=== PATIENT | female | born 1950 | race Caucasian/White ===

== ENCOUNTER 2017-11-22 07:26 | Emergency (ER) | payer MEDICARE ==
[~2017-11-22] VITALS: Ht 165.1 cm; Wt 53.5 kg
[~2017-11-22 07:26] MED LIST: (None)20 M1 GT; ALBU3IS INH; ALBU90OI61 INH; AZIT250 PO; BENZ100A PO; Bactrim Ds Tab1 EACH PO; Bactroban22 GM TOP; CEPH500 PO; CIPR500 PO; CODGUAEL PO; FOLI1 PO; LEVFLO500 PO; LISHYD2025 PO; LOSA25 PO; NICO21TP TD; PRED10 PO; PRED20 PO; Prednisone20 MG PO; RXPROM25 PO; RXTRAM50 PO; THIA100 PO; TRAM50 PO; TRAZ50 PO; Zithromax Tri-500 MG PO
[2017-11-22] MEDS ORDERED: Ventolin/Prove6.7 GM INH (07:41)
[2017-11-22 08:19] LABS: BASOPHILS PERCENT AUTO 1 % (0-2); EOSINOPHILS ABSOLUTE AUTO 0.57 K/mm3 (0.00-0.68); EOSINOPHILS PERCENT AUTO 6 % (0-6); Hematocrit 38.3 % (33.0-51.0); Hemoglobin 12.7 g/dL (11.5-16.0); IMMATURE GRAN ABSOLUTE AUTO 0.03 K/mm3 (0.00-0.10); IMMATURE GRAN PERCENT AUTO 0 % (0-1); LYMPHOCYTES ABSOLUTE AUTO 2.05 K/mm3 (0.84-5.20); LYMPHOCYTES PERCENT AUTO 21 % (21-46); MONOCYTES ABSOLUTE AUTO 0.66 K/mm3 (0.16-1.47); MONOCYTES PERCENT AUTO 7 % (4-13); Mean Corpuscular HGB 33.3 pg (26.0-34.0); Mean Corpuscular HGB Conc 33.2 g/dL (31.5-36.5); Mean Corpuscular Volume 101 fL (80-100); Mean Platelet Volume 8.8 fL (9.1-12.4); NEUTROPHILS ABSOLUTE AUTO 6.39 K/mm3 (1.96-9.15); NEUTROPHILS PERCENT AUTO 65 % (41-73); Platelet Count 205 K/mm3 (150-400); RDW Coefficient Variation 13.2 % (11.7-14.2); RDW Standard Deviation 49.1 fL (35.1-46.3); Red Blood Cell Count 3.81 M/mm3 (3.80-5.20)
[2017-11-22 08:35] LABS: Alanine Aminotransfer (ALT/SGP 55 U/L (12-78); Albumin, Blood 3.6 g/dL (3.4-5.0); Albumin/Globulin Ratio 1.1 (0.8-1.8); Alk Phos 67 U/L (50-136); Anion Gap 10 mmol/L (6-16); Aspartate Aminotrans (AST/SGOT 63 U/L (12-37); Bilirubin, Total 0.7 mg/dL (0.1-1.0); Blood Urea Nitrogen 7 mg/dL (8-24); CO2, Blood 24 mmol/L (21-32); Calcium, Blood 8.6 mg/dL (8.5-10.1); Chloride, Blood 106 mmol/L (98-108); Creatinine, Blood 0.59 mg/dL (0.40-1.00); Globulin, Blood 3.3 g/dL (2.2-4.0); Glomerular Filtration Rate >60 (60-); Glucose, Blood 85 mg/dL (70-99); Potassium, Blood 3.6 mmol/L (3.5-5.5); Sodium, Blood 140 mmol/L (136-145); Total Protein, Blood 6.9 g/dL (6.4-8.2); Troponin I 0.017 ng/mL (0.000-0.040)
[2017-11-22] MEDS ORDERED: Norco 5-325 Ta1 EACH PO (08:56)
[2017-11-22] MEDS ORDERED: Prednisone20 MG PO (08:56)
[2017-11-22] MEDS ORDERED: Zithromax250 MG PO (08:56)
== END 2017-11-22 09:25 | disposition home or self-care (01) ==
LOC: ER 07:26
PROVIDERS: Emergency Medicine
DX: J44.1 Chronic obstructive pulmonary disease with (acute) exacerbation (principal); I10 Essential (primary) hypertension; Z88.6 Allergy status to analgesic agent; Z88.5 Allergy status to narcotic agent; Z79.899 Other long term (current) drug therapy; Z79.51 Long term (current) use of inhaled steroids
CPT/HCPCS: 71046; 80053; 81000; 84484; 85025; 93005; 93010; 94640; 96361; 96374; 99285-25; J2930; J7030

== ENCOUNTER 2018-05-07 13:41 | Inpatient (IN) | payer MEDICARE, OTHER ==
[~2018-05-07] VITALS: Ht 154.9 cm; Wt 54.6 kg
[~2018-05-07 13:41] MED LIST changes: +ANORO ELLIPTA1 EACH INH; +GUAIFENESIN1200 MG PO; +Norco 5-325 Ta1 EACH PO; +Ventolin/Prove6.7 GM INH; +Zithromax250 MG PO
[2018-05-07 14:01] LABS: PCO2 Arterial 74.9 mmHg (35-45); pH Blood Arterial 7.17 (7.35-7.45)
[2018-05-07 14:08] LABS: BASOPHILS ABSOLUTE AUTO 0.06 K/mm3 (0.00-0.23); BASOPHILS PERCENT AUTO 1 % (0-2); EOSINOPHILS ABSOLUTE AUTO 0.04 K/mm3 (0.00-0.68); EOSINOPHILS PERCENT AUTO 0 % (0-6); Hematocrit 42.2 % (33.0-51.0); Hemoglobin 13.5 g/dL (11.5-16.0); IMMATURE GRAN ABSOLUTE AUTO 0.03 K/mm3 (0.00-0.10); IMMATURE GRAN PERCENT AUTO 0 % (0-1); LYMPHOCYTES ABSOLUTE AUTO 1.75 K/mm3 (0.84-5.20); LYMPHOCYTES PERCENT AUTO 19 % (21-46); MONOCYTES ABSOLUTE AUTO 0.88 K/mm3 (0.16-1.47); MONOCYTES PERCENT AUTO 9 % (4-13); Mean Corpuscular HGB 31.8 pg (26.0-34.0); Mean Corpuscular Volume 99 fL (80-100); Mean Platelet Volume 8.8 fL (9.1-12.4); NEUTROPHILS ABSOLUTE AUTO 6.67 K/mm3 (1.96-9.15); NEUTROPHILS PERCENT AUTO 71 % (41-73); Platelet Count 263 K/mm3 (150-400); RDW Coefficient Variation 14.2 % (11.7-14.2); RDW Standard Deviation 52.2 fL (35.1-46.3); Red Blood Cell Count 4.25 M/mm3 (3.80-5.20); White Blood Cell Count 9.43 K/mm3 (4.00-11.30)
[2018-05-07 14:34] LABS: Alanine Aminotransfer (ALT/SGP 21 U/L (12-78); Albumin, Blood 4.1 g/dL (3.4-5.0); Albumin/Globulin Ratio 1.1 (0.8-1.8); Alk Phos 76 U/L (50-136); Anion Gap 8 mmol/L (6-16); Aspartate Aminotrans (AST/SGOT 25 U/L (12-37); Bilirubin, Total 0.6 mg/dL (0.1-1.0); Blood Urea Nitrogen 8 mg/dL (8-24); Bun/Creatinine Ratio 15.8 (12.0-20.0); CO2, Blood 26 mmol/L (21-32); Calcium, Blood 8.9 mg/dL (8.5-10.1); Chloride, Blood 105 mmol/L (98-108); Creatinine, Blood 0.51 mg/dL (0.40-1.00); Globulin, Blood 3.6 g/dL (2.2-4.0); Glomerular Filtration Rate >60 (60-); Glucose, Blood 188 mg/dL (70-99); Potassium, Blood 4.1 mmol/L (3.5-5.5); Sodium, Blood 139 mmol/L (136-145); Total Protein, Blood 7.7 g/dL (6.4-8.2)
[2018-05-07] MEDS ORDERED: ANORO ELLIPTA1 EACH INH (15:57)
[2018-05-07] MEDS ORDERED: ALBU90OI INH (15:58)
[2018-05-07] MEDS ORDERED: FLUO10 PO (15:58)
[2018-05-07] MEDS ORDERED: LOSA50 PO (15:59)
--- NOTE | 2018-05-07 17:26 | NUR ---
ADMIT: PT ADMITTED TO ICU 14 FROM ED. PT AWAKE, ON THE BIPAP 16/8 FIO2 70%. PT'S BREATHING APPEARS LABORED, STILL TOO SHORT OF BREATH TO SAY MORE THAN 1-2 WORDS AT A TIME. LUNGS ARE DIM, SCATTERED EXP WHEEZES. DR. ROBERTSON INFORMED OF CONSULT AND RT NOTIFIED OF ABG AT 1900. NO FAMILY CURRENTLY AT THE BEDSIDE.
[2018-05-07 19:13] LABS: PCO2 Arterial 55.5 mmHg (35-45); PO2 Arterial 81.1 mmHg (80-100); pH Blood Arterial 7.27 (7.35-7.45)
--- NOTE | 2018-05-07 19:55 | NUR ---
CARE ASSUMED CARE AND REPORT ASSUMED FROM NAOMI Paz RN. PT SITTING ON EDGE OF BED BUT IS A/O X 3. C/O GENERALIZED ACHES OVER ENTIRE BODY. [place], HR 110-120. BP ELEVATED PT IS ANXIOUS AT THIS TIME. ENCOURAGED HER BACK INTO BED. ABG RESULTS SHOW IMPROVEMENT WITH USE OF BIPAP. BIPAP CURRENTLY AT 18/6, FIO2 70%. LUNG SOUNDS DIMINISHED WITH INSPIRATORY AND EXPIRATORY WHEEZES. PT TOLERATED FEW SIPS OF WATER AND WAS ABLE TO SWALLOW PO ATIVAN. PRECEDEX GTT STARTED AT 0.2 MCG/KG. BANANA BAG INFUSING PER ORDER. AFEBRILE. WILL CONTINUE TO MONITOR.
[2018-05-07 20:39] LABS: Adenovirus Not Detected (NOT DETECT); Bordetella pertussis Not Detected (NOT DETECT); Chlamydophila pneumoniae Not Detected (NOT DETECT); Coronavirus 229E Not Detected (NOT DETECT); Coronavirus HKU1 Not Detected (NOT DETECT); Coronavirus NL63 Not Detected (NOT DETECT); Coronavirus OC43 Not Detected (NOT DETECT); Human Metapneumovirus Not Detected (NOT DETECT); Human Rhinovirus/Enterovirus Not Detected (NOT DETECT); Influenza A Not Detected (NOT DETECT); Influenza A/2009-H1 Not Detected (NOT DETECT); Influenza A/H1 Not Detected (NOT DETECT); Influenza A/H3 Detected (NOT DETECT); Influenza B Not Detected (NOT DETECT); Mycoplasma pneumoniae Not Detected (NOT DETECT); Parainfluenza Virus 1 Not Detected (NOT DETECT); Parainfluenza Virus 2 Not Detected (NOT DETECT); Parainfluenza Virus 3 Not Detected (NOT DETECT); Parainfluenza Virus 4 Not Detected (NOT DETECT); Respiratory Syncytial Virus Not Detected (NOT DETECT)
[2018-05-07 22:30] LABS: PCO2 Arterial 56.3 mmHg (35-45); PO2 Arterial 108 mmHg (80-100); pH Blood Arterial 7.26 (7.35-7.45)
--- NOTE | 2018-05-07 22:30 | NUR ---
CALL TO MD Villagran - MD ROBERTSON CALLED FOR UPDATE ON PT RESPIRATORY STATUS. SPO2 98% ON BIPAP /, FIO2 70% BUT PTS RESPIRATROY EFFORT HAS INCREASED SINCE START OF SHIFT. SHE NOW IS HAVING INTERCOSTAL RETRACTIONS AND IS AWAKENING AND ATTEMPTING TO GRAB AT BIPAP STATING SHE CANNOT BREATHE. HER WHEEZES HAVE GOTTEN WORSE, SHE IS NOW HAVING INSPIRATORY AND EXP WHEEZING THROUGHOUT ALL SUAREZ. T.O. TO REPEAT ABG AND INCREASE SEDATION. WILL NOTIFY MD ROBERTSON OF ABG RESULTS. PRECEDEX GTT INFUSING AT 0.5 MCG AND BILAT WRIST RESTRAINTS APPLIED.
--- NOTE | 2018-05-07 23:37 | NUR ---
REASSESSMENT NO CHANGE SINCE PRIOR ASSESSMENT. REMAINS ON BIPAP 07/10, FIO2 70% WITH SPO2 99%. PT CALM AND SLEEPING. PRECEDEX GTT AT 0.5 MCG/KG/HR. MIV NS DECREASED TO 50 ML/HR PER MD ORDER. CURRENTLY IN NSR, HR 70S WITH STABLE BP. AFEBRILE 97.4. REMAINS IN BUE WRIST RESTRAINTS IN ORDER TO KEEP BIPAP IN PLACE. PT PLACED IN DROPLET ISOLATION FOR INFLUENZA. WILL CONTINUE TO MONITOR.
[2018-05-08 03:50] LABS: Albumin, Blood 3.3 g/dL (3.4-5.0); Anion Gap 9 mmol/L (6-16); Blood Urea Nitrogen 10 mg/dL (8-24); CO2, Blood 24 mmol/L (21-32); Calcium, Blood 8.2 mg/dL (8.5-10.1); Chloride, Blood 105 mmol/L (98-108); Creatinine, Blood 0.43 mg/dL (0.40-1.00); Glomerular Filtration Rate >60 (60-); Glucose, Blood 268 mg/dL (70-99); Magnesium, Blood 2.2 mg/dL (1.6-2.4); Phosphorus, Blood 3.3 mg/dL (2.5-4.9); Potassium, Blood 4.4 mmol/L (3.5-5.5); Sodium, Blood 138 mmol/L (136-145)
--- NOTE | 2018-05-08 03:56 | NUR ---
REASSESSMENT PT SLEEPING AND MORE RELAXED SINCE PRIOR EXAM. RESP RATE AND WORK OF BREATHING HAS IMPROVED. PT REMAINS ON VENT 16/8, FIO2 55%. LUNG SOUNDS REMAIN DIMINISHED AND WHEEZY. PRECEDEX GTT INFUSING AT 0.5 MCG/KG/HR. AFEBRILE 97.6. BP STABLE AND PT IN NSR, HR 70S. REMAINS IN RESTRAINTS. SCDS APPLIED. MIV NS INFUSING AT 50 ML/HR. WILL CONTINUE TO MONITOR.
--- NOTE | 2018-05-08 05:51 | NUR ---
SHIFT SUMMARY SEE NOTES FROM BEGINNING OF SHIFT AND CALL TO MD. PT HAS SINCE THEN BEEN CALM AND LIGHTLY SEDATED WITH PRECEDEX GTT AT 0.5 MCG/KG/HR. BUE RESTRAINED PT CONTINUES TO ATTEMPT TO PULL ON BIPAP MASK AND LINES. CATHETER OUTPUT WAS 650 ML. NS MIV DECREASED TO 50 ML/HR. REMAINS ON BIPAP 18/6, FIO2 DECREASED TO 55%. VSS AND BP WNL WHEN PT RELAXED. AFEBRILE. PT IN DROPLET ISOLATION. WILL GIVE BEDSIDE, HANDOFF REPORT TO DAY RN.
--- NOTE | 2018-05-08 08:52 | NUR ---
START OF SHIFT NOTE: PATIENT IS AWAKE AND ON BIPAP MACHINE, SLIGHTLY DRWOSY D/T PRECEDEX INFUSING AT 0.5, TOLERATING BIPAP WELL, ABLE TO ANSWER SOME QUESTIONS, C/O SORE THROAT, DENIES CHEST PAIN/DISCOMFORT, REPORTS NO OTHER PAIN, PATIENT SITTING UP AT 90 DEGREE ANGLE, HELPS WITH BREATHING, LUNG SOUNDS ARE TIGHT AND WHEEZY THROUGHOUT, CALL LIGHT IN REACH, WILL CONTINUE TO MONITOR.
[2018-05-08 11:15] LABS: PO2 Arterial 97.1 mmHg (80-100); pH Blood Arterial 7.35 (7.35-7.45)
[2018-05-08 14:35] LABS: BASOPHILS PERCENT AUTO 0 % (0-2); EOSINOPHILS PERCENT AUTO 0 % (0-6); Hematocrit 35.4 % (33.0-51.0); Hemoglobin 11.5 g/dL (11.5-16.0); IMMATURE GRAN ABSOLUTE AUTO 0.06 K/mm3 (0.00-0.10); IMMATURE GRAN PERCENT AUTO 1 % (0-1); LYMPHOCYTES ABSOLUTE AUTO 0.46 K/mm3 (0.84-5.20); LYMPHOCYTES PERCENT AUTO 4 % (21-46); MONOCYTES ABSOLUTE AUTO 0.27 K/mm3 (0.16-1.47); MONOCYTES PERCENT AUTO 2 % (4-13); Mean Corpuscular HGB 32.3 pg (26.0-34.0); Mean Corpuscular HGB Conc 32.5 g/dL (31.5-36.5); Mean Corpuscular Volume 99 fL (80-100); Mean Platelet Volume 9.1 fL (9.1-12.4); NEUTROPHILS ABSOLUTE AUTO 10.79 K/mm3 (1.96-9.15); NEUTROPHILS PERCENT AUTO 93 % (41-73); Platelet Count 213 K/mm3 (150-400); RDW Coefficient Variation 13.9 % (11.7-14.2); RDW Standard Deviation 51.2 fL (35.1-46.3); Red Blood Cell Count 3.56 M/mm3 (3.80-5.20); White Blood Cell Count 11.58 K/mm3 (4.00-11.30)
--- NOTE | 2018-05-08 15:37 | NUR ---
PATIENT REMAINS CALM AND COOPERATIVE, PATIENT CONTINUOUS TO BE ON BIPAP, MASK REMOVED AND ATTEMPTED TO GIVE PATIENT DAILY ORAL MEDICATIONS BUT PATIENT WAS UNABLE TO FOLLOW INSTRUCTIONS AND RAPIDLY DESATED TO 82 % ONCE MASK WAS REMOVED, MASK REPLACED, WILL TRY AGAIN LATER, PATIENT WAS REPOSITIONED AND BOOSTED UP IN BED, TOLERATED WELL, CALL LIGHT IN REACH, WILL CONTINUE TO MONITOR.
--- NOTE | 2018-05-08 17:55 | NUR ---
SHIFT SUMMARY NOTE: PATIENT CONTINUES TO BE ON BIPAP, SETTINGS 18/8 FiO2 45%, ABG'S WNL, PER DR. ROBERTSON KEEP HER ON BIPAP AT THIS TIME, O2 SATURATION IN UPPER 90'S, PATIENT IS AWAKE AND ALERT BUT SLIGHTLY CONFUSED AT TIMES, ABLE TO FOLLOW INSTRUCTIONS/COMMANDS, AND HELP WITH SIDE TO SIDE REPOSITIONING, UNABLE TO SWALLOW ANY PO MEDICATIONS, WAS NOT ABLE TO DRINK SIPS OF WATER FROM STRAW OR CUP, KEPT DOZING OFF, LS CLEAR, SR/SB, HYPOACTIVE BOWEL TONES PRESENT, BONILLA CATHETER IN PLACE, DRAINING FOOD AMOUNT OF URINE, PATIENT SAT UP MOST OF DAY AT 90 DEGREE ANGLE FOR COMFORT, RESTRAINTS NOT IN USE, ORDER WAS D/C'D, PATIENT DID NOT TRY TO PULL AT LINES AND TUBES, RECEIVING IV ANTIBIOTICS, GRANDDAUGHTER AT BEDSIDE, WAS UPDATED ON PATIENT'S PROGRESS AND CONDITION, PATIENT RECEIVED 2 MG ATIVAN TOWARDS END OF DAY SHIFT D/T INCREASING RESTLESSNESS AND AGITATION, CALL LIGHT IN REACH, WILL CONTINUE TO MONITOR AND GIVE REPORT TO ONCOMING STORAGE GARAGE MANAGER.
--- NOTE | 2018-05-08 19:30 | NUR ---
Candler of Care: Patient sleeping, easily roused via verbal stimuli. Oriented x4, calm and cooperative with staff. Precedex gtt decreased from 0.5mcg/kg/min to 0.3mcg/kg/min. BiPAP at 18/8/40% at start of shift. RT Ariela decreased settings to 12/5/30%, O2% remains 94-97%. Pt denies dyspnea/SOB, but instructed per Dr. John to keep patient on BiPAP mask throughout the NOC shift as long as tolerated. Denies pain or discomfort. Peripheral IV's x2 patent and intact. Nieves cath patent and intact, draining clear yellow urine. Received verbal order per Dr. John to increase IV fluids from 50ml/hr to 75ml/hr. Call light in reach. Will continue to monitor for pain, comfort, safety.
[2018-05-09 03:17] LABS: BASOPHILS ABSOLUTE AUTO 0.02 K/mm3 (0.00-0.23); BASOPHILS PERCENT AUTO 0 % (0-2); EOSINOPHILS ABSOLUTE AUTO 0.01 K/mm3 (0.00-0.68); EOSINOPHILS PERCENT AUTO 0 % (0-6); Hemoglobin 12.1 g/dL (11.5-16.0); IMMATURE GRAN PERCENT AUTO 1 % (0-1); LYMPHOCYTES ABSOLUTE AUTO 0.76 K/mm3 (0.84-5.20); LYMPHOCYTES PERCENT AUTO 4 % (21-46); MONOCYTES ABSOLUTE AUTO 0.41 K/mm3 (0.16-1.47); MONOCYTES PERCENT AUTO 2 % (4-13); Mean Corpuscular HGB 31.6 pg (26.0-34.0); Mean Platelet Volume 9.2 fL (9.1-12.4); NEUTROPHILS ABSOLUTE AUTO 15.83 K/mm3 (1.96-9.15); NEUTROPHILS PERCENT AUTO 92 % (41-73); Platelet Count 202 K/mm3 (150-400); RDW Coefficient Variation 14.2 % (11.7-14.2); RDW Standard Deviation 53.4 fL (35.1-46.3); Red Blood Cell Count 3.83 M/mm3 (3.80-5.20); White Blood Cell Count 17.13 K/mm3 (4.00-11.30)
[2018-05-09 03:19] LABS: Mean Corpuscular Volume 102 fL (80-100)
[2018-05-09 03:36] LABS: Alanine Aminotransfer (ALT/SGP 20 U/L (12-78); Albumin, Blood 3.1 g/dL (3.4-5.0); Albumin/Globulin Ratio 0.9 (0.8-1.8); Alk Phos 56 U/L (50-136); Anion Gap 9 mmol/L (6-16); Aspartate Aminotrans (AST/SGOT 28 U/L (12-37); Bilirubin, Total 0.2 mg/dL (0.1-1.0); Blood Urea Nitrogen 13 mg/dL (8-24); Bun/Creatinine Ratio 28.3 (12.0-20.0); CO2, Blood 22 mmol/L (21-32); Calcium, Blood 8.5 mg/dL (8.5-10.1); Chloride, Blood 111 mmol/L (98-108); Creatinine, Blood 0.46 mg/dL (0.40-1.00); Globulin, Blood 3.3 g/dL (2.2-4.0); Glomerular Filtration Rate >60 (60-); Glucose, Blood 167 mg/dL (70-99); Phosphorus, Blood 2.9 mg/dL (2.5-4.9); Potassium, Blood 4.2 mmol/L (3.5-5.5); Sodium, Blood 142 mmol/L (136-145); Total Protein, Blood 6.4 g/dL (6.4-8.2)
--- NOTE | 2018-05-09 05:54 | NUR ---
Shift Summary: Patient slept well throughout shift. Easily roused via verbal stimuli, remains oriented x4, calm and cooperative with staff. Precedex gtt turned off at approx 0000hr, and off for remainder of shift. On BiPAP 12//25-30% for majority of shift. Short (15-20min) break from BiPAP this morning, O2- 94% on 2L/NC. Patient states she was slowly having more difficulty breathing, although appeared calm and comfortable. Placed back on BiPAP mask for patient's comfort, tolerating without difficulty. Peripheral IV's x2 remain patent and intact. Nieves cath remains patent and intact, draining dark yellow clear urine. Dr. John made aware this morning that patient had 350ml urine output, no new orders received. Call light in reach, makes needs known. Will continue to monitor until report to day shift RN.
--- NOTE | 2018-05-09 07:30 | NUR ---
BEDSIDE REPORT DONE AND INTRODUCED SELF TO PT. CALL LIGHT WITHIN REACH OF PT. NOW ASSUMING CARE OF THIS PT.
--- NOTE | 2018-05-09 08:03 | NUR ---
DR ROY IN TO ASSESS VISIT: PT TO CHANGE TO PCU STATUS AND WILL INCREASED DIET TOLERATED.
--- NOTE | 2018-05-09 10:15 | NUR ---
REPORTED OFF TO JU CORONADO WHOM WILL BE ASSUMING CARE OF THIS PT. CLIFF TOOK BIPAP TO NEW ROOM. PT TO TNX SOON.
--- NOTE | 2018-05-09 10:35 | NUR ---
PT TNX'D VIA BED TO PCU-2. ALL MEDICATIONS AND PERSONAL BELONGINGS SENT WITH PT.
--- NOTE | 2018-05-09 17:31 | NUR ---
HTN CALLED DR PETERSON TO RELATE PT ELEVATED BP AND GIVEN AN UPDATE. ORDER RECIEVED.CONTINUE POT.
--- NOTE | 2018-05-09 21:45 | NUR ---
PROVIDER CONTACTED PT HEART RATE ELEVATING STEADILY SINCE APPROXIMATELY 1930. PT FOUND TO BE IN ATRIAL FIB/A-FLUTTER WITH A RATE RANGING FROM 130-160. DR SHAW CONTACTED AND ORDERS RECEIVED FOR CARDIZEM 10 MG IV PUSH NOW AND REPEAT IN 30-45 MINUTES IF HEART RATE REMAINS ELEVATED. PHYSICIAN ALSO STATED TO CALL BACK IF REMAINS UNRESOLVED AFTER MED ADMINISTRATION. 12 LEAD EKG ALSO ORDERED.WILL INPUT AND ADMINISTER.
--- NOTE | 2018-05-09 23:41 | NUR ---
HEART RATE PT CONTINUES TO HAVE RAPID HEART RATE IN THE 110'S- 120'S. SECONDARY CARDIZEM INPUT PER INITIAL VERBAL ORDERS. WILL ADMINISTER AND MONITOR FOR CHANGES.
[2018-05-10 04:34] LABS: Albumin, Blood 3.3 g/dL (3.4-5.0); Anion Gap 9 mmol/L (6-16); Blood Urea Nitrogen 7 mg/dL (8-24); Bun/Creatinine Ratio 17.9 (12.0-20.0); CO2, Blood 29 mmol/L (21-32); Calcium, Blood 8.6 mg/dL (8.5-10.1); Chloride, Blood 103 mmol/L (98-108); Creatinine, Blood 0.39 mg/dL (0.40-1.00); Glomerular Filtration Rate >60 (60-); Glucose, Blood 164 mg/dL (70-99); Phosphorus, Blood 2.8 mg/dL (2.5-4.9); Potassium, Blood 3.1 mmol/L (3.5-5.5); Sodium, Blood 141 mmol/L (136-145)
--- NOTE | 2018-05-10 05:43 | NUR ---
SHIFT SUMMARY- PT HAS REMAINED ORIENTED TO SELF, SURROUNDINGS, AND SITUATION THROUGHOUT SHIFT. HAS REMAINED MOSTLY COOPERATIVE WITH CARE AND ATTEMPTS HAS BEEN USING CALL LIGHT AFTER FIRST EPISODE OF SELF AMBULATION AND EDUCATION PROVIDED. PT REMAINS VERY UNSTEADY ON HER FEET AND IS WOBBLY UPON STANDING. HEART RHYTHM HAS CONTINUED TO CONVERT BETWEEN SINUS TACHYCARDIA AND ATRIAL FIBRILLATION, THOUGH HEART RATE HAS BEEN BETTER CONTROLLED SINCE SECOND DOSE OF CARDIZEM WAS GIVEN, CURRENT AVERAGE HEART RATE IS 100. PT HAS BEEN ABLE TO REST ON AND OFF THROUGHOUT THE NIGHT. CIWA HAS REMAINED FAIRLY CONTROLLED AND STAYED UNDER 10. MEDICATED WITH ATIVAN FOR ANXIETY AND WITHDRAWAL SYMPTOMS TWO TIMES THROUGHOUT THE NIGHT WITH GOOD RESULTS. MOST RECENT CIWA WAS 4. 02 SATS REMAIN >90% ON 2L VIA NASAL CANNULA. PT WILL OCCASIONALLY REMOVE NASAL CANNULA WHEN SLEEPING OR DISORIENTED, WHEN REMOVED O2 DESATURATES TO HIGH 80'S, BUT RECOVERS QUICKLY WITH PURSED LIP BREATHING TECHNIQUES. NO OTHER CHANGES FROM INITIAL ASSESSMENT. WILL CONTINUE TO MONITOR AND REPORT TO ONCOMING SHIFT RN. BED IN LOW POSITION, CALL LIGHT IN REACH. BED ALARM SET FOR SAFETY.
--- NOTE | 2018-05-10 08:15 | NUR ---
AM assessment: Pt sitting up in bed at this time with Daughter and [id number] at bedside. Her family is very concerned about Pt's breathing and mentation. States "she isn't normally like this, She isn't all there, We think it is the Ativan". Pt is A/O to self, Family, day, time, surroundings, situation. Pt does seem a little slow to respond and forgetful. Slight tremors to hands. Pt does seem a little anxious and states that she feels a little anxious. LS with some wheezing in upper lobes, fairly clear in bases. Does seem to have some labored breathing. Breathing tx was called for. Pulses palp, BT positive, HR reg at this time. VSS. Pt and family was given education on medicaions and their side effects, ETOH withdrawls, Influenza, Breathing tx, and overall plan of care for Pt. They verbalized understanding, denied questions. Call light in reach. Will continue to monitor Pt's needs.
--- NOTE | 2018-05-10 10:40 | NUR ---
UPDATE: Pt sounding wheezing with labored breathing. Placed onb bipap at 25% fio2, 01/26. Resp rate of 28. BIox 94%. Will monitor. Call light in reach.
--- NOTE | 2018-05-10 12:40 | NUR ---
Echocardiogram completed.
--- NOTE | 2018-05-10 19:46 | NUR ---
SHIFT SUMMARY: Pt resting in bed with bipap on at this time. Pt has done well this shift. CIWA has remained at 4 or below. LS have been wheezy throughout the shift. Nonproductive weak cough. Pt has been up to BSC multiple times to void clear yellow urine. HR has remained in a NSR in the 70-100 range. Other VS have remained stable. Pt has been SOB with any activity. Encouraged her to ask for Breathing tx PRN. Pt verbalzied understanding. NO other changes this shift. Will report to night rn.
[2018-05-11 04:23] LABS: Anion Gap 6 mmol/L (6-16); Blood Urea Nitrogen 7 mg/dL (8-24); Bun/Creatinine Ratio 15.3 (12.0-20.0); CO2, Blood 32 mmol/L (21-32); Calcium, Blood 8.8 mg/dL (8.5-10.1); Chloride, Blood 100 mmol/L (98-108); Creatinine, Blood 0.46 mg/dL (0.40-1.00); Glomerular Filtration Rate >60 (60-); Glucose, Blood 108 mg/dL (70-99); Potassium, Blood 3.7 mmol/L (3.5-5.5); Sodium, Blood 138 mmol/L (136-145)
--- NOTE | 2018-05-11 06:26 | NUR ---
SHIFT SUMMARY PT CIWA SCORE 3-0. HAD SLIGHT TREMOR AT START OF SHIFT AND A LITTLE BIT DISORIENTED/FORGETFUL. BY END OF SHIFT, TREMORS WERE GONE AND SHE WAS ORIENTED. LUNG SOUNDS WHEEZY. REFUSED BIPAP FOR MOST OF SHIFT WORE 2L O2 NC. BEEN CALLING APPROPRIATELY EXCEPT FOR ONE OCCASION OF SETTING OFF BED ALARM. WEAK NONPRODUCTIVE COUGH. BP 162/111 GAVE HYDRALAZINE IV PRN AND BP 157/99. SHE WAS ABLE TO SLEEP T/O NIGHT. SBA TO BSC. BED ALARM IN USE.
--- NOTE | 2018-05-11 18:35 | NUR ---
SHIFT SUMMARY PT RESTING IN BED THROUGHOUT THE DAY. BED ALARM ON. PT ASSISTED UP TO BEDSIDE COMMODE WITH STANDBY ASSIST. CIWA 0 THROUGHOUT THE DAY. LUNG SOUNDS EXPIRATORY WHEEZES THROUGHOUT, DIMINISHED BASES. NSR RATE 87 PER TELEMETRY. WILL CONTINUE TO MONITOR.
--- NOTE | 2018-05-12 04:42 | NUR ---
SHIFT SUMMARY PT A&O X4, CALM AND COOPERATIVE. AUDIBLE EXPIRATORY WHEEZE NOTED T/O LUNGS. SPO2 > 92% ON 2L NC. MONITOR SHOWS NSR T/O SHIFT. NO AFIB. PT SBA TO BSC. PT STATES "I'M FEELING MUCH BETTER." PT DENIES PAIN, N&V. WILL CONTINUE TO MONITOR AND PROVIDE CARE UNTIL REPORT OFF TO DAY SHIFT RN.
--- NOTE | 2018-05-12 08:00 | NUR ---
Assumed Care: Assumed care of pt at approx 0700. VSS. In no apparent sign of distress. Pt is A&Ox4. Calling appropriately and repositions self. See shift assessment for detailed assessment. Pt states that she is feeling so much better this AM. Denies any pain. Deneis any acute complaints or events this AM. Pt already up to shower and tolerating well. States that her strength is feeling much more stable and breathing is easier. Currently up to shower. CIWA score 0 this AM. Will continue to monitor.
--- NOTE | 2018-05-12 13:01 | NUR ---
Transfer: Pt transferred at approx 1315. VSS. In no apparent sign of distress. Called report to Marie Servin RN.
--- NOTE | 2018-05-12 18:21 | NUR ---
JORGE ALBERTO NOTE/SHIFT SUMMARY RECIEVED REPORT FROM ANGELA RAMOS RN IN PCU. PT TO ROOM VIA WHEELCHAIR AT 1310. SBA ASSIST TO BED. PT ORIENTED TO UNIT AND ROOM. CALL LIGHT WITHIN REACH. PT A&Ox4, CALM AND COOPERATIVE WITH CARE. PT RESTING IN BED DURING SHIFT. SOB WITH EXERTION, >92% ON 1L O2 VIA NC. PT CONTINUES TO RECIEVE TAMIFLU FOR INFLUENZA. PT RECEIVING IV ANTIBIOTICS AND STEROIDS, AND PO ANTIBIOTICS. VSS. NO OHTER ACUTE CHANGES DURING SHIFT. WILL CONTINUE TO MONITOR UNTIL REPORT GIVEN TO ONCOMING RN.
--- NOTE | 2018-05-13 05:15 | NUR ---
VSS, AFEBRILE, A/O, SBA TO BR, OCC UNPRODUCTIVE COUGH NOTED, PT SLEPT WELL OVERNOC, NO COMPLAINTS, WILL REPORT TO ON-COMING SHIFT.
[2018-05-13] MEDS ORDERED: FOLI1 PO (12:27)
[2018-05-13] MEDS ORDERED: Q-Tussin100 MG/5 M PO (12:27)
[2018-05-13] MEDS ORDERED: METO50ER PO (12:28)
[2018-05-13] MEDS ORDERED: PRED20 PO (12:31)
[2018-05-13] MEDS ORDERED: PANT40 PO (12:31)
[2018-05-13] MEDS ORDERED: XARELTO20 MG PO (12:32)
[2018-05-13] MEDS ORDERED: BUDE.25 NEB (12:33)
[2018-05-13] MEDS ORDERED: ALBU3IS INH (12:36)
== END 2018-05-13 13:32 | disposition home or self-care (01) | DRG 193 ==
LOC: ER 13:41 → MEDS 16:19 → ICUW 16:19 → PCU 16:38 → ICUW 16:51 → PCU 05-09 10:43 → MEDS 05-12 13:11
PROVIDERS: Internal Medicine; Internal Medicine Critical Care Medicine; ADMIT Internal Medicine
PROC: 5A09457 Assistance with Respiratory Ventilation, 24-96 Consecutive Hours, Continuous Positive Airway Pressure (ICD-10-PCS; principal; 2018-05-07)
DX: J10.1 Influenza due to other identified influenza virus with other respiratory manifestations (principal); J96.21 Acute and chronic respiratory failure with hypoxia; J96.22 Acute and chronic respiratory failure with hypercapnia; J44.1 Chronic obstructive pulmonary disease with (acute) exacerbation; F10.239 Alcohol dependence with withdrawal, unspecified; E87.6 Hypokalemia; I10 Essential (primary) hypertension; F17.210 Nicotine dependence, cigarettes, uncomplicated; I48.0 Paroxysmal atrial fibrillation; Z79.01 Long term (current) use of anticoagulants
CPT/HCPCS: 36415; 36556; 36600; 51702; 71045; 80048; 80053; 80069; 82803; 83735; 83880; 84100; 85025; 87486; 87581; 87633; 87798; 93005; 93010; 93306; 94640; 94644; 94660; 94760; 94761; 94762; 96365-59; 96367-59; 96375-59; 99285-25; C1752; C9113; J0360; J0456; J0696; J1650; J2060; J2920; J2930; J3475; J7030; J7042; J7050

== ENCOUNTER → 2018-05-19 | Outpatient (CLI) | payer MEDICARE, OTHER ==
[~2018-05-19] MED LIST changes: +ALBU90OI INH; +BUDE.25 NEB; +FLUO10 PO; +LOSA50 PO; +METO50ER PO; +PANT40 PO; +Q-Tussin100 MG/5 M PO; +XARELTO20 MG PO
== END | disposition home or self-care (01) ==
LOC: LAB 09:00 → LAB SHORT 09:00
DX: J98.19 Other pulmonary collapse (principal)
CPT/HCPCS: 87070; 87205

== ENCOUNTER → 2020-03-05 | Outpatient (CLI) | payer MEDICARE ==
[~2020-03-05] MED LIST changes: +ELIQUIS5 M3 PO; +GUAI600T33 PO; +METOPROLOL SUCC25 MG PO; +Pulmicort Fle180 MCG INH
[2020-03-06 13:17] LABS: Stool Occult Bld Immuno 1 Positive (NEGATIVE)
== END | disposition home or self-care (01) ==
LOC: LAB 10:15 → LAB SHORT 10:15
PROVIDERS: Family Medicine
DX: Z12.11 Encounter for screening for malignant neoplasm of colon (principal)
CPT/HCPCS: G0328

== ENCOUNTER 2020-09-03 10:29 | Inpatient (IN) | payer MEDICARE, OTHER ==
[~2020-09-03] VITALS: Ht 157.5 cm; Wt 53.5 kg
[~2020-09-03 10:29] MED LIST changes: -ELIQUIS5 M3 PO; -GUAI600T33 PO; -METOPROLOL SUCC25 MG PO; -Pulmicort Fle180 MCG INH
[2020-09-03] MEDS ORDERED: METOPROLOL SUCC25 MG PO (10:44)
[2020-09-03] MEDS ORDERED: ELIQUIS5 M3 PO (10:44)
[2020-09-03] MEDS ORDERED: LOSA50 PO (10:45)
[2020-09-03] MEDS ORDERED: GUAI600T33 PO (10:57)
[2020-09-03 11:13] LABS: BASOPHILS ABSOLUTE AUTO 0.11 K/mm3 (0.00-0.23); BASOPHILS PERCENT AUTO 1 % (0-2); EOSINOPHILS ABSOLUTE AUTO 1.17 K/mm3 (0.00-0.68); EOSINOPHILS PERCENT AUTO 12 % (0-6); IMMATURE GRAN ABSOLUTE AUTO 0.03 K/mm3 (0.00-0.10); IMMATURE GRAN PERCENT AUTO 0 % (0-1); LYMPHOCYTES PERCENT AUTO 21 % (21-46); MONOCYTES ABSOLUTE AUTO 0.75 K/mm3 (0.16-1.47); MONOCYTES PERCENT AUTO 8 % (4-13); Mean Corpuscular HGB 33.3 pg (26.0-34.0); Mean Corpuscular HGB Conc 34.1 g/dL (31.5-36.5); Mean Corpuscular Volume 98 fL (80-100); Mean Platelet Volume 9.2 fL (9.1-12.4); NEUTROPHILS ABSOLUTE AUTO 5.63 K/mm3 (1.96-9.15); NEUTROPHILS PERCENT AUTO 58 % (41-73); Platelet Count 236 K/mm3 (150-400); RDW Coefficient Variation 12.1 % (11.7-14.2); RDW Standard Deviation 43.8 fL (35.1-46.3); Red Blood Cell Count 4.51 M/mm3 (3.80-5.20); White Blood Cell Count 9.69 K/mm3 (4.00-11.30)
[2020-09-03 11:34] LABS: Alanine Aminotransfer (ALT/SGP 26 U/L (12-78); Albumin, Blood 3.7 g/dL (3.4-5.0); Alk Phos 72 U/L (50-136); Anion Gap 10 mmol/L (6-16); Aspartate Aminotrans (AST/SGOT 23 U/L (12-37); Bilirubin, Total 0.9 mg/dL (0.1-1.0); Blood Urea Nitrogen 11 mg/dL (8-24); Bun/Creatinine Ratio 18.4 (12.0-20.0); CO2, Blood 27 mmol/L (21-32); Calcium, Blood 9.2 mg/dL (8.5-10.1); Chloride, Blood 98 mmol/L (98-108); Globulin, Blood 3.7 g/dL (2.2-4.0); Glomerular Filtration Rate >60 (60-); Glucose, Blood 75 mg/dL (70-99); Potassium, Blood 3.7 mmol/L (3.5-5.5); Sodium, Blood 135 mmol/L (136-145); Total Protein, Blood 7.4 g/dL (6.4-8.2); Troponin I <0.015 ng/mL (0.000-0.040)
[2020-09-03] MEDS ORDERED: Pulmicort Fle180 MCG INH (11:49)
--- NOTE | 2020-09-04 07:26 | NUR ---
SHIFT SUMMARY: TOMMY DID WELL LAST NIGHT. LUNG SOUNDS ARE SLIGHTLY TIGHT BREATHING TREATMENT HELPED. COUGH IS PRODCUTIVE WITH BROWN SPUTUM. ENCOURAGED DEEP BREATHING, AND DISCUSSED BREATHING EXERCISES SHE COULD DO AT HOME. AOX3, INDEPENDENT IN THE ROOM. O2 NC AT 4 LITERS WITH SATS HOLDING ABOVE 90%. MILD HEADACHE, TYLENOL WAS GIVEN. VS STABLE, AFEBRILE. NO OTHER CHANGES TO NOTE. CALL LIGHT IN REACH.
--- NOTE | 2020-09-04 18:02 | NUR ---
ALERT. ORIENTED. DENIES ANY PAIN. UNLABORED RESPIRATIONS. AMBULATED WITH PATIENT FROM RM 361 TO LAB, BACK TO RN STATION, THEN AROUND LOOP BACK TO RM 361. ON OXYGEN TURNING DOWN TO 1LPM VIA N/C. PATIENT WAS ABLE TO SPEAK IN COMPLETE SENTENCES WHILE WALKING. STOPPED COUPLE OF TIMES DURING WALK TO CHECK SATS AND WAS 93-97%. PATIENT HAS INFREQUENT HARSH SOUNDING COUGH T/O DAY WHICH SHE SAYS IS REASON SHE HAS HAD HEADACHE. MEDICATED FOR HEADACHE W/PAIN RESULTS LOW AND TOLERABLE. POSSIBLE D'C TOMORROW. WCTM.
--- NOTE | 2020-09-05 07:49 | NUR ---
SHIFT SUMMARY: AOX3, INDEPENDENT IN THE ROOM. PATIENT VERY EXCITED ABOUT HER PROGRESS YESTERDAY WITH WALKING FAR SHE DID. STATES SHE HAS NOT WALKED THAT FAR IN A LONG TIME. SHE WAS HOPEFUL THAT MAYBE SHE CAN DO MORE FOR NOW IN HER LIFE. DISCUSSED MANAGEMENT TECHNIQUES AT HOME AND SOME LIFESTYLE CHANGES THAT COULD HELP HER MANAGE HER COPD BETTER. SHE VERBALIZED UNDERSTANDING. LUNGS DIMINISHED IN BASES, COUGH IS DRY AND OCCATIONAL. SHE DID HAVE HER O2 OFF FOR A LONG PERIOD OF TIME BEFORE GOING TO BED AND DID WELL, BUT THIS WAS PUT BACK ON AT 1LITER FOR SLEEP. VS WNL, AFEBRILE. NO OTHER CHANGES TO REPORT THIS SHIFT. CALL LIGHT IN REACH.
[2020-09-05] MEDS ORDERED: PRED20 PO (11:38)
--- NOTE | 2020-09-05 16:41 | NUR ---
PATIENT DISCHARGED TO HOME IN CARE OF HER DAUGHTER. IV SALINE LOCK REMOVED WITHOUT INCIDENT. VERBALIZED UNDERSTANDING OF D/C INSTRUCTIONS. GIVEN HARD RX FOR NEBULIZER. OFF UNIT VIA W/C AT 1235, TAKEN DOWNSTAIRS BY DC VOLUNTEER.
== END 2020-09-05 12:35 | disposition home or self-care (01) | DRG 189 ==
LOC: ER 10:29 → MEDS 13:12
PROVIDERS: Emergency Medicine; ADMIT Internal Medicine
DX: J96.01 Acute respiratory failure with hypoxia (principal); J44.1 Chronic obstructive pulmonary disease with (acute) exacerbation; Z66 Do not resuscitate; I10 Essential (primary) hypertension; I48.0 Paroxysmal atrial fibrillation; F32.9 Major depressive disorder, single episode, unspecified; Z71.6 Tobacco abuse counseling; Z87.891 Personal history of nicotine dependence; Z98.890 Other specified postprocedural states; Z88.5 Allergy status to narcotic agent; Z88.8 Allergy status to other drugs, medicaments and biological substances
CPT/HCPCS: 36415; 71045; 80053; 83880; 84484; 85025; 93005; 93010; 94640; 94644; 94760; 94761; 96374; 96375; 99285-25; A9270; J0456; J2920; J2930; J3475; J7050

== ENCOUNTER 2021-05-27 12:52 | Emergency (ER) | payer MEDICARE ==
[~2021-05-27] VITALS: Ht 157.5 cm; Wt 56.7 kg
[~2021-05-27 12:52] MED LIST changes: +ELIQUIS5 M3 PO; +GUAI600T33 PO; +METOPROLOL SUCC25 MG PO; +Pulmicort Fle180 MCG INH
[2021-05-27] MEDS ORDERED: TRELEGY ELLIPT1 EAC1 IH (13:58)
[2021-05-27] MEDS ORDERED: FUROSEMIDE40 MG PO (13:59)
[2021-05-27 15:30] LABS: BASOPHILS ABSOLUTE AUTO 0.07 K/mm3 (0.00-0.23); BASOPHILS PERCENT AUTO 1 % (0-2); EOSINOPHILS ABSOLUTE AUTO 0.11 K/mm3 (0.00-0.68); EOSINOPHILS PERCENT AUTO 1 % (0-6); Hematocrit 38.4 % (33.0-51.0); Hemoglobin 13.4 g/dL (11.5-16.0); IMMATURE GRAN ABSOLUTE AUTO 0.04 K/mm3 (0.00-0.10); IMMATURE GRAN PERCENT AUTO 1 % (0-1); LYMPHOCYTES ABSOLUTE AUTO 2.17 K/mm3 (0.84-5.20); LYMPHOCYTES PERCENT AUTO 27 % (21-46); MONOCYTES ABSOLUTE AUTO 0.75 K/mm3 (0.16-1.47); MONOCYTES PERCENT AUTO 9 % (4-13); Mean Corpuscular HGB 32.9 pg (26.0-34.0); Mean Corpuscular HGB Conc 34.9 g/dL (31.5-36.5); Mean Corpuscular Volume 94 fL (80-100); Mean Platelet Volume 8.8 fL (9.1-12.4); NEUTROPHILS ABSOLUTE AUTO 5.01 K/mm3 (1.96-9.15); NEUTROPHILS PERCENT AUTO 62 % (41-73); Platelet Count 222 K/mm3 (150-400); RDW Coefficient Variation 12.6 % (11.7-14.2); RDW Standard Deviation 43.8 fL (35.1-46.3); Red Blood Cell Count 4.07 M/mm3 (3.80-5.20); White Blood Cell Count 8.15 K/mm3 (4.00-11.30)
[2021-05-27 15:50] LABS: Alanine Aminotransfer (ALT/SGP 25 U/L (12-78); Albumin, Blood 3.8 g/dL (3.4-5.0); Alk Phos 69 U/L (50-136); Anion Gap 9 mmol/L (6-16); Aspartate Aminotrans (AST/SGOT 26 U/L (12-37); Bilirubin, Total 0.7 mg/dL (0.1-1.0); Blood Urea Nitrogen 13 mg/dL (8-24); Bun/Creatinine Ratio 20.7 (12.0-20.0); CO2, Blood 28 mmol/L (21-32); Calcium, Blood 9.1 mg/dL (8.5-10.1); Chloride, Blood 101 mmol/L (98-108); Creatinine, Blood 0.63 mg/dL (0.40-1.00); Globulin, Blood 3.8 g/dL (2.2-4.0); Glomerular Filtration Rate >60 (60-); Glucose, Blood 101 mg/dL (70-99); Potassium, Blood 3.3 mmol/L (3.5-5.5); Sodium, Blood 138 mmol/L (136-145); Total Protein, Blood 7.6 g/dL (6.4-8.2)
[2021-05-27] MEDS ORDERED: METO25 PO (18:38)
== END 2021-05-27 18:53 | disposition home or self-care (01) ==
LOC: ER 12:52
PROVIDERS: Emergency Medicine
DX: I10 Essential (primary) hypertension (principal); R07.89 Other chest pain; J44.9 Chronic obstructive pulmonary disease, unspecified
CPT/HCPCS: 36415; 71045; 71260; 80053; 84484; 85025; 93005; 93010; 93971; 96374; 96375; 99285-25; A9270; J0360; Q9967

== ENCOUNTER 2021-08-21 05:57 | Day surgery (SDC) | payer MEDICARE ==
[~2021-08-21] VITALS: Ht 157.5 cm; Wt 62.0 kg
[~2021-08-21 05:57] MED LIST changes: +ALBU2.5V5 INH; +BUDESONIDE0.5 MG/2 M INH; +FUROSEMIDE40 MG PO; +IPRAT-ALBUT 0.5-3 ML INH; +METO25 PO; +MONT10T PO; +TRELEGY ELLIPT1 EAC1 IH; +TRELEGY ELLIPT1 EACH INH
--- NOTE | 2021-08-21 08:52 | NUR ---
PT RETURNED TO RECOVERY ROOM IN RECLINER. LACW PACEMAKER SITE SOFT WITH NO HEMATOMA, NO BLEEDING AND INTACT DRESSING WITH ICE BAG OVER LACW PACER SITE. PT DRINKING FLUID, CALL LIGHT IN REACH.
--- NOTE | 2021-08-21 09:07 | NUR ---
NO CHANGES TO LACW SITE.
--- NOTE | 2021-08-21 10:01 | NUR ---
NO CHANGES TO LACW SITE. PT C/O "SORENESS" LACW SITE.
--- NOTE | 2021-08-21 10:59 | NUR ---
NO CHANGES TO LACW SITE. PT STATES LACW SITE SORENESS IMPROVING.
--- NOTE | 2021-08-21 11:48 | NUR ---
DR HUDDLESTON IN ROOM TO SEE PT. NO CHANGES TO LACW PACEMAKER SITE. DISCHARGE INSTRUCTIONS REVIEWED ALL QUESTIONS ANSWERED.
--- NOTE | 2021-08-21 12:16 | NUR ---
NO CHANGES TO LACW PACER SITE. 22 G IV DISCONTINUED FROM LEFT WRIST. PT ESCORTED OUT VIA WHEELCHAIR ESCORT WITH LEFT ARM SLING IN PLACE.
== END 2021-08-21 12:53 | disposition home or self-care (01) ==
LOC: MHTC 05:57
DX: I49.5 Sick sinus syndrome (principal); I45.5 Other specified heart block; I48.0 Paroxysmal atrial fibrillation; J44.9 Chronic obstructive pulmonary disease, unspecified; I10 Essential (primary) hypertension; Z88.5 Allergy status to narcotic agent; Z79.01 Long term (current) use of anticoagulants; Z79.899 Other long term (current) drug therapy
CPT/HCPCS: 33208; 71046; 99152; 99153; A9270; C1781; C1785; C1894; C1898; J0690; J1580; J1644; J2250; J3010; J7030; J7040; Q9967

== ENCOUNTER 2024-01-04 07:52 | Emergency (ER) | payer OTHER, MEDICARE ==
[~2024-01-04] VITALS: Ht 157.5 cm; Wt 54.4 kg
[~2024-01-04 07:52] MED LIST changes: +FURO40 PO; +TRELEGY ELLIPT1 EAC1
[2024-01-04 08:45] VITALS: BP 123/79
== END 2024-01-04 10:03 | disposition home or self-care (01) ==
LOC: ER 07:52
DX: S51.812A Laceration without foreign body of left forearm, initial encounter (principal); J44.9 Chronic obstructive pulmonary disease, unspecified; I10 Essential (primary) hypertension; W01.0XXA Fall on same level from slipping, tripping and stumbling without subsequent striking against object, initial encounter; Z86.73 Personal history of transient ischemic attack (TIA), and cerebral infarction without residual deficits; Z79.52 Long term (current) use of systemic steroids; Z79.899 Other long term (current) drug therapy; Z88.5 Allergy status to narcotic agent; Z88.6 Allergy status to analgesic agent
CPT/HCPCS: 99283